=== PATIENT | female | born 1945 | race Hispanic/Latino ===

== ENCOUNTER 2018-06-13 05:44 | Day surgery (SDC) | payer OTHER ==
[~2018-06-13] VITALS: Ht 157.5 cm; Wt 69.1 kg
[~2018-06-13 05:44] MED LIST: INSU10VI3 SQ; METO50TA18 PO; OZEMPIC SQ; TORS20TA4 PO; TRAZ-185 PO
[2018-06-13] MEDS ORDERED: SODIUM CHLORIDE 0.9% 1000ML 1,000 ML IV ONE (05:58)
[2018-06-13 06:50] VITALS: BP 111/60
[2018-06-13] MEDS ORDERED: PROPOFOL 10 MG/ML 20ML VIAL IV ONE ×2 (08:06)
[2018-06-13] MEDS ORDERED: PHENYLEPHRINE HCL 10 MG/ML 1ML VIAL IV ONE (08:20)
[2018-06-13 08:29] VITALS: BP 96/36
[2018-06-13 08:36] VITALS: BP 103/50
[2018-06-13 08:41] VITALS: BP 98/50
[2018-06-13 08:48] VITALS: BP 112/66
== END 2018-06-13 08:59 | disposition home or self-care (01) ==
LOC: DAH 05:44
PROVIDERS: ATTEND Internal Medicine Gastroenterology
DX: K31.7 Polyp of stomach and duodenum (principal); K29.50 Unspecified chronic gastritis without bleeding; K21.0 Gastro-esophageal reflux disease with esophagitis; K44.9 Diaphragmatic hernia without obstruction or gangrene; K31.89 Other diseases of stomach and duodenum; E11.9 Type 2 diabetes mellitus without complications; Z85.3 Personal history of malignant neoplasm of breast; E78.5 Hyperlipidemia, unspecified; I11.0 Hypertensive heart disease with heart failure; I50.9 Heart failure, unspecified; F41.9 Anxiety disorder, unspecified; F32.9 Major depressive disorder, single episode, unspecified; M19.90 Unspecified osteoarthritis, unspecified site; Z90.49 Acquired absence of other specified parts of digestive tract; Z79.01 Long term (current) use of anticoagulants; Z79.899 Other long term (current) drug therapy; Z98.890 Other specified postprocedural states; Z95.0 Presence of cardiac pacemaker
CPT/HCPCS: 43239; 43251; 45330; 82948 ×2; 88305; 93005; A4606; J2370; J2704 ×2; J7030; 43244

== ENCOUNTER 2018-07-23 08:11 | Emergency (ER) | payer OTHER ==
[2018-07-23] MEDS ORDERED: ONDANSETRON HCL 4 MG/2 ML VIAL ONE (09:15)
[2018-07-23] MEDS ORDERED: SODIUM CHLORIDE 0.9% 1000ML 1,000 ML IV ONE (09:15)
[2018-07-23] MEDS ORDERED: MORPHINE SULFATE 4 MG/1ML SYG ONE (09:16)
[2018-07-23 09:18] LABS: APPEARANCE,URINE Clear (CLEAR); BASOPHILS % (AUTO) 0.8 % (0.0-5.0); BILIRUBIN,URINE Negative (NEGATIVE); COLOR,URINE Yellow (YELLOW); EOSINOPHILS % (AUTO) 2.3 % (0.0-8.0); GLUCOSE, URINE (UA) 250 mg/dL (NEGATIVE); HEMATOCRIT 35.5 % (36-48); KETONES,URINE Negative (NEGATIVE); LEUKOCYTE ESTERASE ,URINE Negative (NEGATIVE); MEAN CORPUSCULAR HEMOGLOBIN 29.9 pg (27.0-33.0); MEAN CORPUSCULAR HGB CONC 33.2 g/dL (32.0-36.0); MEAN CORPUSCULAR VOLUME 90.1 fL (79-99); MONOCYTES % (AUTO) 6.9 % (3.0-13.0); NITRATE,URINE Negative (NEGATIVE); NUCLEATED RED BLOOD CELLS 0.1 % (0.0-0.19); OCCULT BLOOD,URINE Trace (NEGATIVE); PLATELET COUNT (AUTO) 210 K/uL (130-400); PROTEIN,URINE POS 1+ (NEGATIVE); RED BLOOD CELL COUNT(AUTO) 3.94 MIL/uL (4.00-5.50); RED CELL DISTRIBUTION WIDTH 13.2 % (11.0-15.5); UROBILINOGEN,URINE 0.2 mg/dL (0.2-1.0); WHITE BLOOD COUNT (AUTO) 9.2 K/uL (4.8-10.8)
[2018-07-23 09:25] LABS: CREATININE 1.1 mg/dL (0.5-1.5); POTASSIUM 4.3 mmol/L (3.5-5.1)
[2018-07-23 09:31] LABS: ALBUMIN 3.3 g/dL (3.5-5.0); BILIRUBIN,TOTAL 0.8 mg/dL (0.2-1.0); INR 1.01 (0.85-1.15); PARTIAL THROMBOPLASTIN TIME 26.2 SEC (26.3-35.5); PROTHROMBIN TIME 10.6 SEC (9.6-11.6); TOTAL PROTEIN, SERUM 7.9 g/dL (6.0-8.3)
[2018-07-23] MEDS ORDERED: IOHEXOL-350 75 ML VIAL IV ONE (09:34)
[2018-07-23 09:58] LABS: BACTERIA,URINE Few /HPF (None Seen); MUCUS,URINE Rare LPF (None Seen); RBC,URINE 0-1 /HPF (0-1); SQUAMOUS EPITHELIAL CELL,UR Few /HPF (0-2); URIC ACID CRYSTALS,URINE Few /LPF (None Seen); WBC,URINE 0-1 /HPF (0-1)
== END 2018-07-23 10:57 | disposition home or self-care (01) ==
LOC: EDH 08:11
DX: R10.32 Left lower quadrant pain (principal); E11.9 Type 2 diabetes mellitus without complications; I11.0 Hypertensive heart disease with heart failure; I50.9 Heart failure, unspecified; I25.10 Atherosclerotic heart disease of native coronary artery without angina pectoris; Z90.49 Acquired absence of other specified parts of digestive tract; Z98.890 Other specified postprocedural states; Z85.3 Personal history of malignant neoplasm of breast
CPT/HCPCS: 36415; 74177; 80053; 81001; 83605; 83690; 84484; 85025; 85610; 85730; 96374; 96375; 99284; J2270; J2405; J7030; Q9967

== ENCOUNTER 2019-07-16 17:17 | Emergency (ER) | payer OTHER ==
[2019-07-16] MEDS ORDERED: ALTEPLASE 100 MG VIAL IVP ONE (17:18)
[2019-07-16 17:35] LABS: EOSINOPHILS % (AUTO) 2.6 % (0.0-8.0); HEMATOCRIT 36.4 % (36-48); MEAN CORPUSCULAR HEMOGLOBIN 29.6 pg (27.0-33.0); MEAN CORPUSCULAR HGB CONC 32.4 g/dL (32.0-36.0); MEAN CORPUSCULAR VOLUME 91.5 fL (79-99); MONOCYTES % (AUTO) 7.3 % (3.0-13.0); NEUTROPHILS % (AUTO) 66.6 % (40.0-77.0); PLATELET COUNT (AUTO) 232 K/uL (130-400); RED BLOOD CELL COUNT(AUTO) 3.98 MIL/uL (4.00-5.50); RED CELL DISTRIBUTION WIDTH 13.4 % (11.0-15.5); WHITE BLOOD COUNT (AUTO) 8.8 K/uL (4.8-10.8)
[2019-07-16 17:49] LABS: CREATININE 1.5 mg/dL (0.5-1.5); POTASSIUM 3.9 mmol/L (3.5-5.1)
[2019-07-16 17:54] LABS: ALBUMIN 3.5 g/dL (3.5-5.0); BILIRUBIN,TOTAL 0.6 mg/dL (0.2-1.0); TOTAL PROTEIN, SERUM 8.1 g/dL (6.0-8.3)
[2019-07-16 17:56] LABS: INR 1.05 (0.85-1.15); PARTIAL THROMBOPLASTIN TIME 23.6 SEC (26.3-35.5)
[2019-07-16] MEDS ORDERED: IOHEXOL-350 75 ML VIAL IV ONE (18:28)
[2019-07-16] MEDS ORDERED: DiphenhydrAMINE HCL 50 MG/ML VIAL ONE (18:35)
[2019-07-16] MEDS ORDERED: FUROSEMIDE 10 MG/ML 2ML VIAL ONE (18:35)
[2019-07-16] MEDS ORDERED: FUROSEMIDE 10 MG/ML 4ML VIAL ONE (18:36)
[2019-07-16] MEDS ORDERED: IPRATROPIUM/ALBUTEROL SULFATE 3 ML SOLUTION IH ONE (18:36)
[2019-07-16] MEDS ORDERED: NITROGLYCERIN 1GM/1 INCH PACKET TD ONE (19:01)
[2019-07-16 19:37] LABS: APPEARANCE,URINE Clear (CLEAR); BILIRUBIN,URINE Negative (NEGATIVE); COLOR,URINE Yellow (YELLOW); GLUCOSE, URINE (UA) Negative (NEGATIVE); KETONES,URINE Negative (NEGATIVE); LEUKOCYTE ESTERASE ,URINE Trace (NEGATIVE); NITRATE,URINE Positive (NEGATIVE); OCCULT BLOOD,URINE Moderate (NEGATIVE); PH,URINE 5.5 (5.0-8.0); PROTEIN,URINE POS 2+ mg/dL (NEGATIVE); UROBILINOGEN,URINE 0.2 mg/dL (0.2-1.0)
[2019-07-16 19:45] LABS: AMPHET/METH SCREEN,URINE NEGATIVE (NEGATIVE); BARBITURATE SCREEN, URINE NEGATIVE (NEGATIVE); BENZODIAZEPINES SCREEN,URINE NEGATIVE (NEGATIVE); CANNABINOID SCREEN,URINE NEGATIVE (NEGATIVE); COCAINE SCREEN,URINE NEGATIVE (NEGATIVE); OPIATE SCREEN,URINE NEGATIVE (NEGATIVE); PHENCYCLIDINE SCREEN,URINE NEGATIVE (NEGATIVE)
[2019-07-16 19:46] LABS: BACTERIA,URINE Moderate /HPF (None Seen); SQUAMOUS EPITHELIAL CELL,UR Few /HPF (0-2)
== END 2019-07-16 22:45 | disposition short-term general hospital (02) ==
LOC: EDH 17:17
DX: I63.9 Cerebral infarction, unspecified (principal); J81.0 Acute pulmonary edema; I16.1 Hypertensive emergency; I11.0 Hypertensive heart disease with heart failure; I50.9 Heart failure, unspecified; E11.9 Type 2 diabetes mellitus without complications; Z85.3 Personal history of malignant neoplasm of breast; Z79.899 Other long term (current) drug therapy
CPT/HCPCS: 36415; 37195; 70450; 71045 ×2; 80053; 80305; 81001; 82550; 82948; 83721; 83880; 84484; 85025; 85610; 85730; 93005; 94640; 94660; 96374; 96375; 99291; 99292; J1200; J1940 ×2; J2997; 70496; 70498; Q9967

== ENCOUNTER → 2019-10-26 | Outpatient (CLI) | payer OTHER | END | disposition home or self-care (01) | LOC: RAH 10:05 | PROVIDERS: ATTEND Internal Medicine Cardiovascular Disease | DX: I08.3 Combined rheumatic disorders of mitral, aortic and tricuspid valves (principal); I50.9 Heart failure, unspecified; I27.20 Pulmonary hypertension, unspecified | CPT/HCPCS: 93306; 93356 ==

== ENCOUNTER 2019-12-13 05:34 | Observation (INO) | payer OTHER ==
--- NOTE | 2019-12-12 11:28 | NUR ---
MEDS DR. Martin DORANTES NOTIFIED THAT PATIENT TOOK XARELTO TODAY IN AM. PT SCHEDULED FOR LHC IN AM , HE STATED HE WILL REVIEW CHART AND DECIDE WHETER PROCEDURE CAN STILL BE DONE, PENDING CALL BACK
[2019-12-13] VITALS (13 sets, daily range): BP systolic 120–139; BP diastolic 54–84
[~2019-12-13] VITALS: Ht 154.9 cm; Wt 68.0 kg
[~2019-12-13 05:34] MED LIST changes: +AMIO200T6 PO; +ATOR20TA65 PO; +CARV6.25 PO; +INSU100I35 SQ; -INSU10VI3 SQ; -METO50TA18 PO; -OZEMPIC SQ; +RIVA15TA PO; -TRAZ-185 PO; +ozempic SQ
[2019-12-13 06:38] LABS: BASOPHILS % (AUTO) 0.9 % (0.0-5.0); HEMATOCRIT 35.2 % (36-48); LYMPHOCYTES % (AUTO) 19.4 % (21.0-51.0); MEAN CORPUSCULAR HEMOGLOBIN 30.4 pg (27.0-33.0); MEAN CORPUSCULAR VOLUME 92.1 fL (79-99); MONOCYTES % (AUTO) 7.7 % (3.0-13.0); NEUTROPHILS % (AUTO) 67.6 % (40.0-77.0); PLATELET COUNT (AUTO) 205 K/uL (130-400); RED BLOOD CELL COUNT(AUTO) 3.82 MIL/uL (4.00-5.50); RED CELL DISTRIBUTION WIDTH 13.5 % (11.0-15.5)
[2019-12-13 06:44] LABS: APPEARANCE,URINE Clear (CLEAR); BILIRUBIN,URINE Negative (NEGATIVE); COLOR,URINE Yellow (YELLOW); GLUCOSE, URINE (UA) Negative (NEGATIVE); KETONES,URINE Negative (NEGATIVE); LEUKOCYTE ESTERASE ,URINE Trace (NEGATIVE); NITRATE,URINE Negative (NEGATIVE); OCCULT BLOOD,URINE Trace (NEGATIVE); PROTEIN,URINE Trace mg/dL (NEGATIVE); UROBILINOGEN,URINE 0.2 mg/dL (0.2-1.0)
[2019-12-13 06:46] LABS: CREATININE 1.8 mg/dL (0.5-1.5); POTASSIUM 3.5 mmol/L (3.5-5.1)
[2019-12-13] MEDS ORDERED: SODIUM CHLORIDE 0.9% 1000ML 1,000 ML IV ONE (06:50)
[2019-12-13 06:57] LABS: INR 1.27 (0.85-1.15); PARTIAL THROMBOPLASTIN TIME 30.9 SEC (26.3-35.5); PROTHROMBIN TIME 13.6 SEC (9.6-11.6)
[2019-12-13 06:59] LABS: BACTERIA,URINE Moderate /HPF (None Seen); HYALINE CASTS, URINE 0-1 /LPF (0-1 /LPF); RBC,URINE 0-1 /HPF (0-1)
[2019-12-13] MEDS: SODIUM CHLORIDE 0.9% 1000ML 1,000 ML IV SCH ×4 (07:30→22:30)
[2019-12-13] MEDS ORDERED: MIDAZOLAM HCL 1 MG/ML 2ML VIAL ONE (07:31)
[2019-12-13] MEDS ORDERED: BIVALIRUDIN 250 MG/VIAL IV ONE (07:31)
[2019-12-13] MEDS ORDERED: NITROGLYCERIN 2 MG/VIAL VIAL IV ONE (07:31)
[2019-12-13] MEDS ORDERED: IOHEXOL 350 MG/ML 100ML INFUS..BTL IV ONE (07:31)
[2019-12-13] MEDS ORDERED: LIDOCAINE HCL 2% 20ML ONE (07:31)
[2019-12-13] MEDS ORDERED: IOHEXOL-350 50ML VIAL IV ONE (08:18)
[2019-12-13] MEDS ORDERED: SODIUM CHLORIDE 0.9% 1000ML 1,000 ML IV SCH (08:58)
[2019-12-13] MEDS ORDERED: GLUCAGON 1MG KIT 1 MG ML IM PRN (09:00)
[2019-12-13] MEDS ORDERED: DEXTROSE 50%-WATER 50 ML DISP.SYRIN IV PRN (09:00)
[2019-12-13] MEDS: INSULIN HUMULIN 70/30 100 UNIT/ML 3ML SQ SCH ×2 (10:22→16:32)
[2019-12-13] MEDS: INSULIN HUMULIN R 100 UNIT/ML 3ML SQ SCH ×3 (10:36→21:00)
[2019-12-13] MEDS ORDERED: VANCOMYCIN 1GM+NS 250ML 250 ML IV PRN (11:30)
[2019-12-13] MEDS ORDERED: CARVEDILOL 3.125 MG TABLET PO SCH (21:00)
[2019-12-13] MEDS: TORSEMIDE 20 MG TAB PO SCH (21:23)
[2019-12-13] MEDS: ATORVASTATIN CALCIUM 20 MG TABLET PO SCH (21:23)
[2019-12-13] MEDS: AMIODARONE HCL 200 MG TABLET PO SCH (21:24)
[2019-12-14] VITALS (12 sets, daily range): BP systolic 105–132; BP diastolic 57–80
[2019-12-14] MEDS: SODIUM CHLORIDE 0.9% 1000ML 1,000 ML IV SCH ×4 (03:30→17:50)
[2019-12-14 04:11] LABS: CREATININE 1.5 mg/dL (0.5-1.5); POTASSIUM 3.3 mmol/L (3.5-5.1)
[2019-12-14] MEDS: INSULIN HUMULIN R 100 UNIT/ML 3ML SQ SCH ×4 (05:28→21:00)
[2019-12-14] MEDS ORDERED: POTASSIUM CHLORIDE 10% ELIXIR 20 MEQ/15 ML UDCUP PO PRN (06:00)
[2019-12-14] MEDS ORDERED: POTASSIUM CHLORIDE 20MEQ/100ML 100 ML IV PRN (06:00)
[2019-12-14] MEDS ORDERED: LIDOCAINE HCL-MPF 1% 2ML VIAL IJ PRN (06:00)
[2019-12-14] MEDS ORDERED: POTASSIUM CHLORIDE 20MEQ/100ML 100 ML IV ONE (06:09)
[2019-12-14] MEDS ORDERED: LIDOCAINE HCL-MPF 1% 2ML VIAL ONE (06:11)
[2019-12-14] MEDS ORDERED: BUPIVACAINE/PF 0.25% 30ML VIAL IJ ONE (07:20)
[2019-12-14] MEDS ORDERED: LIDOCAINE HCL 1% MDV 50ML VIAL ONE (07:20)
[2019-12-14] MEDS ORDERED: MIDAZOLAM HCL 1 MG/ML 2ML VIAL ONE ×3 (07:20→08:41)
[2019-12-14] MEDS ORDERED: MEPERIDINE-PF 25 MG/ML SYG ONE ×3 (07:20→08:41)
[2019-12-14] MEDS ORDERED: IODIXANOL 320 MG/ML 100 ML VIAL ONE (07:20)
[2019-12-14] MEDS ORDERED: VANCOMYCIN 1GM+NS 250ML 500 ML IV ONE (07:21)
[2019-12-14] MEDS: INSULIN HUMULIN 70/30 100 UNIT/ML 3ML SQ SCH ×2 (08:00→16:34)
[2019-12-14] MEDS ORDERED: ACETAMINOPHEN-CODEINE 300/30MG TAB PO PRN (10:30)
--- NOTE | 2019-12-14 10:59 | NUR ---
CM NOTE/IA UNSUCCESSFUL MEET WITH PATIENT IN ROOM FOR IA, PATIENT AROUSABLE BUT EASY DROWSY AND FALLS ASLEEP. S/P AICD, WILL FOLLOW UP AT A LATER TIME. Addendum: 12/14/19 at 1100 by BERTHA ALVAREZ RN CM Amended: Links added.
[2019-12-14] MEDS: CARVEDILOL 6.25 MG TABLET PO SCH ×2 (11:32→20:42)
[2019-12-14] MEDS: LOSARTAN 50 MG TABLET PO SCH (11:33)
[2019-12-14] MEDS: TORSEMIDE 20 MG TAB PO SCH (20:43)
[2019-12-14] MEDS: AMIODARONE HCL 200 MG TABLET PO SCH (20:43)
[2019-12-14] MEDS: ATORVASTATIN CALCIUM 20 MG TABLET PO SCH (20:43)
[2019-12-15 04:00] VITALS: BP 124/71
[2019-12-15 04:52] LABS: CREATININE 1.7 mg/dL (0.5-1.5); POTASSIUM 3.5 mmol/L (3.5-5.1)
--- NOTE | 2019-12-15 04:52 | NUR ---
PATIENT A/OX3. DENIES CHEST PAIN OR SOB. DOES C/O SORENESS TO INCISION SITE. SWELLING TO PM SITE NOTED. ICE PACK APPLIED. REDIAL PULSES INTACT. DENIES TINGLING OR NUMBNESS TO LEFT HAND. CAP REFILL < 3. LEFT ARM IN SLING. WILL CONTINUE TO MONITOR.
[2019-12-15] MEDS: POTASSIUM CHLORIDE 20 MEQ ERTAB PO PRN ×2 (06:11→11:17)
[2019-12-15] MEDS: INSULIN HUMULIN R 100 UNIT/ML 3ML SQ SCH ×3 (06:23→16:30)
[2019-12-15 07:30] VITALS: BP 125/74
[2019-12-15] MEDS: SODIUM CHLORIDE 0.9% 1000ML 1,000 ML IV SCH ×2 (07:59→14:30)
[2019-12-15] MEDS: LOSARTAN 50 MG TABLET PO SCH (07:59)
[2019-12-15] MEDS: CARVEDILOL 6.25 MG TABLET PO SCH (08:00)
[2019-12-15] MEDS: INSULIN HUMULIN 70/30 100 UNIT/ML 3ML SQ SCH ×2 (08:02→16:38)
[2019-12-15] MEDS ORDERED: RIVAROXABAN 15 MG TABLET PO SCH (09:00)
[2019-12-15 11:30] VITALS: BP 122/67
[2019-12-15] MEDS ORDERED: RIVAROXABAN 2.5 MG TABLET PO SCH ×2 (12:30→19:00)
[2019-12-15 15:30] VITALS: BP 117/66
[2019-12-20] MEDS ORDERED: OZEMPIC 2.5 MG SQ SCH (09:00)
== END 2019-12-15 19:00 | disposition home or self-care (01) ==
LOC: DAH 05:34 → DAHIP 05:35 → 4BH 09:42 → 4CH 18:03 → 4AH 12-14 11:52 → 4CH 12-14 11:55
PROVIDERS: ADMIT Internal Medicine Cardiovascular Disease; ATTEND Internal Medicine Cardiovascular Disease
DX: I25.5 Ischemic cardiomyopathy (principal); I48.0 Paroxysmal atrial fibrillation; I44.2 Atrioventricular block, complete; I47.1 Supraventricular tachycardia; I50.42 Chronic combined systolic (congestive) and diastolic (congestive) heart failure; N18.3 Chronic kidney disease, stage 3 (moderate); I42.8 Other cardiomyopathies; Z86.73 Personal history of transient ischemic attack (TIA), and cerebral infarction without residual deficits; Z95.0 Presence of cardiac pacemaker; Z79.01 Long term (current) use of anticoagulants; Z91.14 Patient's other noncompliance with medication regimen
CPT/HCPCS: 33225; 33233; 33249; 36415 ×3; 71045 ×2; 80048 ×3; 81001; 82948 ×11; 85025; 85610; 85730; 87088; 93005; 93458; 96372 ×3; A4215; A4216; A4221; A4222; A4223 ×3; A4606; A4663; C1760; C1769; C1882; C1894 ×2; C1895; C1900; G0378 ×20; J1644; J1815 ×8; J2175 ×3; J2250 ×4; J3370; J3480; J3490 ×5; J7030 ×2; Q9965; Q9967 ×3; 99156; 99157; J0583

== ENCOUNTER → 2021-07-06 | Outpatient (CLI) | payer OTHER ==
[~2021-07-06] MED LIST changes: -AMIO200T6 PO; +AMIO200T68 PO; -CARV6.25 PO
== END | disposition home or self-care (01) ==
LOC: RAH 13:53
PROVIDERS: ATTEND Family Medicine
DX: J98.4 Other disorders of lung (principal)
CPT/HCPCS: 71250

== ENCOUNTER 2022-05-19 13:08 | Emergency (ER) | payer OTHER ==
[~2022-05-19] VITALS: Ht 154.9 cm; Wt 74.8 kg
[2022-05-19] MEDS ORDERED: ACETAMINOPHEN 500 MG TABLET PO STA (13:24)
[2022-05-19] MEDS ORDERED: ACET-66 PO (14:12)
[2022-05-19 15:17] VITALS: BP 156/80
== END 2022-05-19 15:18 | disposition home or self-care (01) ==
LOC: EDH 13:08
DX: S42.202A Unspecified fracture of upper end of left humerus, initial encounter for closed fracture (principal); M25.561 Pain in right knee; I11.0 Hypertensive heart disease with heart failure; I50.9 Heart failure, unspecified; E11.9 Type 2 diabetes mellitus without complications; Z79.4 Long term (current) use of insulin; Z90.49 Acquired absence of other specified parts of digestive tract; W01.0XXA Fall on same level from slipping, tripping and stumbling without subsequent striking against object, initial encounter; Y93.89 Activity, other specified; Y92.89 Other specified places as the place of occurrence of the external cause; Y99.8 Other external cause status
CPT/HCPCS: 71045; 73030; 73562

== ENCOUNTER → 2022-08-17 | Outpatient (CLI) | payer OTHER ==
[~2022-08-17] MED LIST changes: +ACET-66 PO
[2022-08-17 09:33] LABS: CREATININE 2.5 mg/dL (0.5-1.5); POTASSIUM 4.9 mmol/L (3.5-5.1)
== END | disposition home or self-care (01) ==
LOC: RAH 08:36
PROVIDERS: ATTEND Internal Medicine Cardiovascular Disease
DX: R22.32 Localized swelling, mass and lump, left upper limb (principal); I82.90 Acute embolism and thrombosis of unspecified vein
CPT/HCPCS: 36415; 80048; 83880; 93971

== ENCOUNTER 2023-01-31 08:26 | Day surgery (SDC) | payer OTHER ==
[2023-01-27 09:50] LABS: HEMATOCRIT 39.6 % (36-48); MEAN CORPUSCULAR HEMOGLOBIN 31.1 pg (27.0-33.0); MEAN CORPUSCULAR HGB CONC 31.1 g/dL (32.0-36.0); MEAN CORPUSCULAR VOLUME 100.3 fL (79-99); RED BLOOD CELL COUNT(AUTO) 3.95 MIL/uL (4.00-5.50); RED CELL DISTRIBUTION WIDTH 14.6 % (11.0-15.5); WHITE BLOOD COUNT (AUTO) 6.6 K/uL (4.8-10.8)
[2023-01-27 09:58] VITALS: BP 221/90; PULSE 85; RESP 16
[2023-01-27 10:02] LABS: INR 1.01 (0.85-1.15)
[2023-01-27 10:03] LABS: PARTIAL THROMBOPLASTIN TIME 27.4 SEC (26.3-35.5)
[2023-01-27 10:05] LABS: CREATININE 5.1 mg/dL (0.5-1.5); POTASSIUM 4.6 mmol/L (3.5-5.1)
[~2023-01-31] VITALS: Ht 152.4 cm; Wt 70.3 kg
[2023-01-31] VITALS (19 sets, daily range): BP systolic 116–171; BP diastolic 42–73; PULSE 60–71; RESP 11–16
[~2023-01-31 08:26] MED LIST changes: -ACET-66 PO; +APIX5TAB PO; -ATOR20TA65 PO; +CARV6.25 PO; +CLON0.1T PO; +FLUC150T48 PO; +HYDR-4154 PO; +ISOS30TA92 PO; +NITR100C PO; -RIVA15TA PO; -TORS20TA4 PO; -ozempic SQ
[2023-01-31] MEDS ORDERED: CEFAZOLIN SODIUM 2 GM VIAL ONE (08:58)
[2023-01-31] MEDS ORDERED: 0.9% NACL 500ML IV.SOLN 500 ML IV ONE (08:58)
[2023-01-31 09:25] LABS: CREATININE 4.8 mg/dL (0.5-1.5); POTASSIUM 4.4 mmol/L (3.5-5.1)
[2023-01-31] MEDS ORDERED: ONDANSETRON 4MG INJ ONE ×2 (13:31→16:24)
[2023-01-31] MEDS ORDERED: PROPOFOL 10 MG/ML 20ML VIAL IV ONE (13:31)
[2023-01-31] MEDS ORDERED: ROCURONIUM 10MG/1ML SYR 10 MG/ML ML ONE (13:31)
[2023-01-31] MEDS ORDERED: FENTANYL CITRATE PF 50 MCG/1 ML 2ML VIAL ONE (13:32)
[2023-01-31] MEDS ORDERED: LIDOCAINE HCL 1% 20 ML VIAL ONE (13:53)
[2023-01-31] MEDS ORDERED: CEFAZOLIN SODIUM 1 GM VIAL ONE (13:53)
[2023-01-31] MEDS ORDERED: BUPIVACAINE/PF 0.5% 10ML VIAL ONE (13:54)
[2023-01-31] MEDS ORDERED: PHENYLEPHRINE HCL 10 MG/ML 1ML VIAL IV ONE (14:10)
[2023-01-31] MEDS ORDERED: NEOSTIGMINE 5MG/5ML SYR IV ONE (14:50)
[2023-01-31] MEDS ORDERED: GLYCOPYRROLATE 1 MG/5 ML SYRINGE ONE (14:50)
== END 2023-01-31 17:40 | disposition home or self-care (01) ==
LOC: DAH 08:26
PROVIDERS: ATTEND Thoracic Surgery (Cardiothoracic Vascular Surgery)
DX: E11.22 Type 2 diabetes mellitus with diabetic chronic kidney disease (principal); Z20.822 Contact with and (suspected) exposure to COVID-19; I13.11 Hypertensive heart and chronic kidney disease without heart failure, with stage 5 chronic kidney disease, or end stage renal disease; N18.6 End stage renal disease; G47.33 Obstructive sleep apnea (adult) (pediatric); F32.A Depression, unspecified; Z86.73 Personal history of transient ischemic attack (TIA), and cerebral infarction without residual deficits; Z99.2 Dependence on renal dialysis; Z79.01 Long term (current) use of anticoagulants; Z79.899 Other long term (current) drug therapy
CPT/HCPCS: 80048 ×2; 85027; 85610; 85730; 86850 ×2; 86900 ×2; 86901 ×2; 87426; 36415 ×2; 71045; 93005; 36830; 82948 ×3; A6260; A4663; A6207; J7030; A4215 ×2; A4452; J7040; J3010; J0690 ×2; J3490 ×2; J2710; J2704; J2405 ×2; J1644; A6446; C9250; A4649 ×3; C1713 ×2; C1768; A4223; A4222; A4221; J2371; G0168

== ENCOUNTER 2023-08-23 20:17 | Emergency (ER) | payer OTHER ==
[2023-08-23 20:58] LABS: BASOPHILS # (AUTO) 0.07 K/uL (0.00-0.20); BASOPHILS % (AUTO) 0.7 % (0.0-5.0); EOSINOPHILS # (AUTO) 0.25 K/uL (0.00-0.70); EOSINOPHILS % (AUTO) 2.6 % (0.0-8.0); HEMATOCRIT 30.1 % (36-48); IMMATURE GRANULOCYTE ABSOLUTE 0.06 K/uL (0-1); LYMPHOCYTES # (AUTO) 1.3 K/uL (1.0-4.8); LYMPHOCYTES % (AUTO) 13.9 % (21.0-51.0); MEAN CORPUSCULAR HEMOGLOBIN 32.4 pg (27.0-33.0); MEAN CORPUSCULAR HGB CONC 33.6 g/dL (32.0-36.0); MEAN CORPUSCULAR VOLUME 96.5 fL (79-99); MONOCYTES # (AUTO) 0.8 K/uL (0.1-1.0); MONOCYTES % (AUTO) 8.1 % (3.0-13.0); NEUTROPHILS # (AUTO) 7.1 K/uL (1.8-7.7); NEUTROPHILS % (AUTO) 74.1 % (40.0-77.0); PLATELET COUNT (AUTO) 172 K/uL (130-400); RED BLOOD CELL COUNT(AUTO) 3.12 MIL/uL (4.00-5.50); WHITE BLOOD COUNT (AUTO) 9.6 K/uL (4.8-10.8)
[2023-08-23 21:09] LABS: INR 0.94 (0.85-1.15)
[2023-08-23 21:10] LABS: PARTIAL THROMBOPLASTIN TIME 25.2 SEC (26.3-35.5)
[2023-08-23 21:18] LABS: ALBUMIN 3.3 g/dL (3.5-5.0); BILIRUBIN,TOTAL 0.4 mg/dL (0.2-1.0); CREATININE 4.5 mg/dL (0.5-1.5); POTASSIUM 3.5 mmol/L (3.5-5.1); TOTAL PROTEIN, SERUM 7.6 g/dL (6.0-8.3)
[2023-08-23 23:09] VITALS: BP 173/65; PULSE 74; RESP 16; O2SAT 95
== END 2023-08-23 23:32 | disposition home or self-care (01) ==
LOC: EDH 20:17
DX: N95.0 Postmenopausal bleeding (principal); I25.10 Atherosclerotic heart disease of native coronary artery without angina pectoris; E11.9 Type 2 diabetes mellitus without complications; E78.00 Pure hypercholesterolemia, unspecified; I11.0 Hypertensive heart disease with heart failure; I50.9 Heart failure, unspecified; Z79.01 Long term (current) use of anticoagulants; Z79.4 Long term (current) use of insulin; Z79.899 Other long term (current) drug therapy; Z86.73 Personal history of transient ischemic attack (TIA), and cerebral infarction without residual deficits; Z99.2 Dependence on renal dialysis
CPT/HCPCS: 36415; 70450; 72125; 76856; 80053; 84484; 85025; 85610; 85730

== ENCOUNTER 2023-08-25 20:47 | Emergency (ER) | payer OTHER ==
[~2023-08-25] VITALS: Ht 152.4 cm; Wt 79.4 kg
[~2023-08-25 20:47] MED LIST changes: -HYDR-4154 PO; +HYDR50TA37 PO
[2023-08-25] MEDS ORDERED: ONDANSETRON 4MG INJ ONE (20:54)
[2023-08-25 21:25] LABS: MEAN CORPUSCULAR HEMOGLOBIN 31.9 pg (27.0-33.0); MEAN CORPUSCULAR HGB CONC 31.9 g/dL (32.0-36.0); PLATELET COUNT (AUTO) 137 K/uL (130-400); RED CELL DISTRIBUTION WIDTH 14.1 % (11.0-15.5); WHITE BLOOD COUNT (AUTO) 10.7 K/uL (4.8-10.8)
[2023-08-25 21:28] LABS: BASOPHILS # (AUTO) 0.04 K/uL (0.00-0.20); BASOPHILS % (AUTO) 0.4 % (0.0-5.0); EOSINOPHILS # (AUTO) 0.26 K/uL (0.00-0.70); EOSINOPHILS % (AUTO) 2.5 % (0.0-8.0); IMMATURE GRANULOCYTE ABSOLUTE 0.06 K/uL (0-1); LYMPHOCYTES # (AUTO) 0.6 K/uL (1.0-4.8); LYMPHOCYTES % (AUTO) 5.5 % (21.0-51.0); MONOCYTES # (AUTO) 0.8 K/uL (0.1-1.0); MONOCYTES % (AUTO) 7.8 % (3.0-13.0); NEUTROPHILS # (AUTO) 8.7 K/uL (1.8-7.7); NEUTROPHILS % (AUTO) 83.2 % (40.0-77.0)
[2023-08-25] MEDS ORDERED: ACETAMINOPHEN 325 MG TAB PO STA (21:28)
[2023-08-25] MEDS ORDERED: ONDANSETRON 4MG INJ IVP STA (21:28)
[2023-08-25 21:41] LABS: CREATININE 4.4 mg/dL (0.5-1.5); POTASSIUM 3.8 mmol/L (3.5-5.1)
[2023-08-25 21:45] LABS: ALBUMIN 3.3 g/dL (3.5-5.0); BILIRUBIN,TOTAL 0.7 mg/dL (0.2-1.0); TOTAL PROTEIN, SERUM 7.7 g/dL (6.0-8.3)
[2023-08-25 21:57] LABS: RAPID GROUP A STREP negative (NEGATIVE)
[2023-08-25 21:57] LABS: B-TYPE NATRIURETIC PEPTIDE 2300 pg/mL (0-100)
[2023-08-25 22:05] LABS: SARS-CoV-2, RNA, NAAT NEGATIVE SARS CoV-2 (NEGATIVE)
[2023-08-25 22:07] LABS: INFLUENZA TYPE A Negative For Type A (NEGATIVE); INFLUENZA TYPE B Negative For Type B (NEGATIVE)
[2023-08-25] MEDS ORDERED: ONDA4TAB10 PO (22:07)
[2023-08-25 22:55] VITALS: TEMP 98
[2023-08-26 07:25] VITALS: BP 153/63; PULSE 80; RESP 18; O2SAT 98
== END 2023-08-26 08:11 | disposition home or self-care (01) ==
LOC: EDH 20:47
DX: R11.2 Nausea with vomiting, unspecified (principal); I25.10 Atherosclerotic heart disease of native coronary artery without angina pectoris; E11.9 Type 2 diabetes mellitus without complications; E78.00 Pure hypercholesterolemia, unspecified; I11.0 Hypertensive heart disease with heart failure; I50.9 Heart failure, unspecified; Z79.01 Long term (current) use of anticoagulants; Z79.4 Long term (current) use of insulin; Z79.899 Other long term (current) drug therapy; Z86.73 Personal history of transient ischemic attack (TIA), and cerebral infarction without residual deficits; Z99.2 Dependence on renal dialysis; Z20.822 Contact with and (suspected) exposure to COVID-19
CPT/HCPCS: 99285; 74176; 71045; 87635; 84484; 80053; 83880; 85025; 86850; 86900; 86901; 87040 ×2; 87880; 87804 ×2; 83605; 36415; 93005; J2405

== ENCOUNTER → 2023-09-16 | Outpatient (CLI) | payer OTHER ==
[~2023-09-16] MED LIST changes: +ONDA4TAB10 PO
== END | disposition home or self-care (01) ==
LOC: RAH 07:47
PROVIDERS: ATTEND Family Medicine
DX: R11.2 Nausea with vomiting, unspecified (principal)
CPT/HCPCS: 78264; A9541

== ENCOUNTER 2023-10-12 14:27 | Observation (INO) | payer OTHER ==
[~2023-10-12] VITALS: Ht 152.4 cm; Wt 72.6 kg
[2023-10-12 16:07] LABS: BASOPHILS # (AUTO) 0.07 K/uL (0.00-0.20); BASOPHILS % (AUTO) 1.1 % (0.0-5.0); EOSINOPHILS # (AUTO) 0.05 K/uL (0.00-0.70); EOSINOPHILS % (AUTO) 0.8 % (0.0-8.0); HEMATOCRIT 31.6 % (36-48); IMMATURE GRANULOCYTE ABSOLUTE 0.03 K/uL (0-1); LYMPHOCYTES # (AUTO) 0.8 K/uL (1.0-4.8); LYMPHOCYTES % (AUTO) 12.9 % (21.0-51.0); MEAN CORPUSCULAR HEMOGLOBIN 31.4 pg (27.0-33.0); MEAN CORPUSCULAR HGB CONC 32.3 g/dL (32.0-36.0); MEAN CORPUSCULAR VOLUME 97.2 fL (79-99); MONOCYTES % (AUTO) 15.8 % (3.0-13.0); NEUTROPHILS # (AUTO) 4.3 K/uL (1.8-7.7); NEUTROPHILS % (AUTO) 68.9 % (40.0-77.0); PLATELET COUNT (AUTO) 154 K/uL (130-400); RED BLOOD CELL COUNT(AUTO) 3.25 MIL/uL (4.00-5.50); RED CELL DISTRIBUTION WIDTH 14.7 % (11.0-15.5); WHITE BLOOD COUNT (AUTO) 6.2 K/uL (4.8-10.8)
[2023-10-12 16:20] LABS: CREATININE 7.2 mg/dL (0.5-1.5); POTASSIUM 4.5 mmol/L (3.5-5.1)
[2023-10-12 16:25] LABS: BILIRUBIN,TOTAL 0.7 mg/dL (0.2-1.0)
[2023-10-12 17:37] LABS: INFLUENZA TYPE A Negative For Type A (NEGATIVE); INFLUENZA TYPE B Negative For Type B (NEGATIVE)
[2023-10-12 17:38] LABS: SARS-CoV-2, RNA, NAAT NEGATIVE SARS CoV-2 (NEGATIVE)
[2023-10-12] MEDS ORDERED: ACETAMINOPHEN 325 MG TAB PO PRN ×2 (20:00)
[2023-10-12] MEDS ORDERED: GLUCAGON 1MG KIT 1 MG ML IM PRN (20:00)
[2023-10-12] MEDS ORDERED: ONDANSETRON 4MG INJ IV PRN (20:00)
[2023-10-12] MEDS ORDERED: DEXTROSE 50%-WATER 50 ML DISP.SYRIN IV PRN (20:00)
[2023-10-12] MEDS ORDERED: HYDRALAZINE 20MG/ML VIAL IV PRN (20:30)
[2023-10-12] MEDS: INSULIN HUMULIN R 100 UNIT/ML 3ML SQ SCH (21:00)
[2023-10-12] MEDS: FAMOTIDINE 20MG TAB PO SCH (22:13)
[2023-10-13] VITALS (20 sets, daily range): BP systolic 147–175; BP diastolic 56–80; PULSE 73–86; RESP 14–18; TEMP 97.8–98.5; O2SAT 92–96
[2023-10-13 05:40] LABS: BASOPHILS # (AUTO) 0.06 K/uL (0.00-0.20); EOSINOPHILS # (AUTO) 0.15 K/uL (0.00-0.70); EOSINOPHILS % (AUTO) 2.5 % (0.0-8.0); HEMATOCRIT 31.1 % (36-48); IMMATURE GRANULOCYTE ABSOLUTE 0.03 K/uL (0-1); LYMPHOCYTES # (AUTO) 1.4 K/uL (1.0-4.8); LYMPHOCYTES % (AUTO) 23.5 % (21.0-51.0); MEAN CORPUSCULAR HEMOGLOBIN 31.7 pg (27.0-33.0); MEAN CORPUSCULAR HGB CONC 30.9 g/dL (32.0-36.0); MEAN CORPUSCULAR VOLUME 102.6 fL (79-99); MONOCYTES # (AUTO) 1.1 K/uL (0.1-1.0); MONOCYTES % (AUTO) 18.2 % (3.0-13.0); NEUTROPHILS # (AUTO) 3.3 K/uL (1.8-7.7); NEUTROPHILS % (AUTO) 54.3 % (40.0-77.0); PLATELET COUNT (AUTO) 146 K/uL (130-400); RED BLOOD CELL COUNT(AUTO) 3.03 MIL/uL (4.00-5.50); RED CELL DISTRIBUTION WIDTH 14.6 % (11.0-15.5)
[2023-10-13 06:09] LABS: ALBUMIN 2.9 g/dL (3.5-5.0); B-TYPE NATRIURETIC PEPTIDE 1020 pg/mL (0-100); BILIRUBIN,TOTAL 0.7 mg/dL (0.2-1.0); POTASSIUM 4.9 mmol/L (3.5-5.1); TOTAL PROTEIN, SERUM 6.8 g/dL (6.0-8.3)
[2023-10-13 06:22] LABS: CREATININE 8.2 mg/dL (0.5-1.5)
[2023-10-13] MEDS: APIXABAN 5 MG TABLET PO SCH (08:32)
[2023-10-13] MEDS ORDERED: ONDANSETRON ODT 4MG TAB PO PRN (13:00)
[2023-10-13] MEDS: CARVEDILOL 6.25 MG TABLET PO SCH (22:04)
[2023-10-13] MEDS: HYDRALAZINE 25MG TABLET PO SCH (22:04)
[2023-10-14 00:18] VITALS: BP 150/64; PULSE 84; RESP 18
[2023-10-14 04:06] VITALS: BP 133/59; PULSE 73; RESP 18
[2023-10-14 05:53] LABS: BASOPHILS # (AUTO) 0.06 K/uL (0.00-0.20); EOSINOPHILS # (AUTO) 0.21 K/uL (0.00-0.70); EOSINOPHILS % (AUTO) 3.5 % (0.0-8.0); HEMATOCRIT 30.1 % (36-48); IMMATURE GRANULOCYTE ABSOLUTE 0.02 K/uL (0-1); LYMPHOCYTES # (AUTO) 1.2 K/uL (1.0-4.8); LYMPHOCYTES % (AUTO) 19.8 % (21.0-51.0); MEAN CORPUSCULAR HEMOGLOBIN 31.2 pg (27.0-33.0); MEAN CORPUSCULAR HGB CONC 32.2 g/dL (32.0-36.0); MEAN CORPUSCULAR VOLUME 96.8 fL (79-99); MONOCYTES # (AUTO) 0.9 K/uL (0.1-1.0); NEUTROPHILS # (AUTO) 3.7 K/uL (1.8-7.7); NEUTROPHILS % (AUTO) 60.4 % (40.0-77.0); PLATELET COUNT (AUTO) 160 K/uL (130-400); RED BLOOD CELL COUNT(AUTO) 3.11 MIL/uL (4.00-5.50); RED CELL DISTRIBUTION WIDTH 14.2 % (11.0-15.5); WHITE BLOOD COUNT (AUTO) 6.1 K/uL (4.8-10.8)
[2023-10-14 06:09] LABS: CREATININE 5.9 mg/dL (0.5-1.5); POTASSIUM 3.8 mmol/L (3.5-5.1)
[2023-10-14 08:00] VITALS: BP 153/81; PULSE 78; RESP 18; O2SAT 94
[2023-10-14] MEDS: AMIODARONE 200 MG TABLET PO SCH (09:10)
[2023-10-14] MEDS: ISOSORBIDE MONO 30MG SR TAB PO SCH (09:11)
[2023-10-14] MEDS: INSULIN HUMULIN 70/30 100 UNIT/ML 3ML SQ SCH (09:27)
[2023-10-14] MEDS: CLONIDINE HCL 0.1 MG TABLET PO SCH (09:43)
[2023-10-14 12:06] VITALS: BP 119/59; PULSE 71; RESP 18
[2023-10-14] MEDS: LACTULOSE 20 GM/30 ML UDCUP PO PRN (13:41)
[2023-10-14] MEDS ORDERED: FAMO20TA8 PO (13:42)
[2023-10-14 14:30] VITALS: PULSE 74; PULSE 81; RESP 18; RESP 20; O2SAT 95; O2SAT 99
== END 2023-10-14 16:15 | disposition home or self-care (01) ==
LOC: EDH 14:27 → EDHIP 19:42 → 3CH 10-13 00:17
PROVIDERS: ADMIT Internal Medicine; ATTEND Internal Medicine
DX: I13.2 Hypertensive heart and chronic kidney disease with heart failure and with stage 5 chronic kidney disease, or end stage renal disease (principal); Z20.822 Contact with and (suspected) exposure to COVID-19; E11.22 Type 2 diabetes mellitus with diabetic chronic kidney disease; I50.43 Acute on chronic combined systolic (congestive) and diastolic (congestive) heart failure; N18.6 End stage renal disease; R06.00 Dyspnea, unspecified; I35.1 Nonrheumatic aortic (valve) insufficiency; D63.8 Anemia in other chronic diseases classified elsewhere; E11.65 Type 2 diabetes mellitus with hyperglycemia; E66.2 Morbid (severe) obesity with alveolar hypoventilation; E44.1 Mild protein-calorie malnutrition; E11.319 Type 2 diabetes mellitus with unspecified diabetic retinopathy without macular edema; I25.10 Atherosclerotic heart disease of native coronary artery without angina pectoris; E03.9 Hypothyroidism, unspecified; E78.5 Hyperlipidemia, unspecified; E11.51 Type 2 diabetes mellitus with diabetic peripheral angiopathy without gangrene; I25.2 Old myocardial infarction; I48.20 Chronic atrial fibrillation, unspecified; I87.8 Other specified disorders of veins; D25.9 Leiomyoma of uterus, unspecified; Z68.32 Body mass index [BMI] 32.0-32.9, adult; Z79.4 Long term (current) use of insulin; Z99.2 Dependence on renal dialysis; Z90.49 Acquired absence of other specified parts of digestive tract; Z79.01 Long term (current) use of anticoagulants; Z95.810 Presence of automatic (implantable) cardiac defibrillator
CPT/HCPCS: 36415; 71045; 74176; 80048; 80053; 82948; 83605; 83735; 83880; 84145; 84484; 85025; 86704; 86706; 87340; 87635; 87804; 87880; 90935; 93005; 94760; 96372; G0378; J1815; G0257

== ENCOUNTER 2023-11-11 20:58 | Observation (INO) | payer OTHER ==
[~2023-11-11] VITALS: Ht 152.4 cm; Wt 63.9 kg
[~2023-11-11 20:58] MED LIST changes: +FAMO20TA8 PO; -NITR100C PO
[2023-11-11 22:16] LABS: BASOPHILS # (AUTO) 0.05 K/uL (0.00-0.20); BASOPHILS % (AUTO) 0.6 % (0.0-5.0); EOSINOPHILS # (AUTO) 0.12 K/uL (0.00-0.70); EOSINOPHILS % (AUTO) 1.3 % (0.0-8.0); HEMATOCRIT 35.2 % (36-48); IMMATURE GRANULOCYTE ABSOLUTE 0.07 K/uL (0-1); LYMPHOCYTES # (AUTO) 1.2 K/uL (1.0-4.8); LYMPHOCYTES % (AUTO) 13.1 % (21.0-51.0); MEAN CORPUSCULAR HEMOGLOBIN 31.1 pg (27.0-33.0); MEAN CORPUSCULAR HGB CONC 32.1 g/dL (32.0-36.0); MONOCYTES # (AUTO) 0.9 K/uL (0.1-1.0); MONOCYTES % (AUTO) 9.6 % (3.0-13.0); NEUTROPHILS # (AUTO) 6.7 K/uL (1.8-7.7); NEUTROPHILS % (AUTO) 74.6 % (40.0-77.0); PLATELET COUNT (AUTO) 163 K/uL (130-400); RED BLOOD CELL COUNT(AUTO) 3.63 MIL/uL (4.00-5.50); RED CELL DISTRIBUTION WIDTH 15.6 % (11.0-15.5)
[2023-11-12] VITALS (23 sets, daily range): BP systolic 101–200; BP diastolic 46–101; PULSE 60–76; RESP 16–19; TEMP 98.2; O2SAT 95–97
[2023-11-12 00:31] LABS: ALBUMIN 3.1 g/dL (3.5-5.0); BILIRUBIN,TOTAL 0.7 mg/dL (0.2-1.0); CREATININE 6.1 mg/dL (0.5-1.0); POTASSIUM 4.7 mmol/L (3.5-5.1); TOTAL PROTEIN, SERUM 7.3 g/dL (6.0-8.3)
[2023-11-12] MEDS: INSULIN HUMULIN R 100 UNIT/ML 3ML SQ ONE (01:05)
[2023-11-12] MEDS ORDERED: ONDANSETRON 4MG INJ IV PRN (02:00)
[2023-11-12] MEDS ORDERED: ACETAMINOPHEN 325 MG TAB PO PRN (02:00)
[2023-11-12] MEDS ORDERED: LACTULOSE 20 GM/30 ML UDCUP PO PRN (02:00)
[2023-11-12] MEDS ORDERED: DEXTROSE 50%-WATER 50 ML DISP.SYRIN IV PRN (02:00)
[2023-11-12] MEDS ORDERED: NITROGLYCERIN 0.4 MG SL TAB SL PRN (02:00)
[2023-11-12] MEDS ORDERED: GUAIFENESIN-DM 200/20 MG 10 ML PO PRN (02:00)
[2023-11-12 02:15] LABS: HEMOGLOBIN A1C 10.2 % (4.0-6.0)
[2023-11-12] MEDS: ACETAMINOPHEN 325 MG TAB PO PRN (03:37)
[2023-11-12] MEDS: INSULIN HUMULIN R 100 UNIT/ML 3ML SQ SCH (05:26)
[2023-11-12] MEDS: FAMOTIDINE 20MG TAB PO SCH (08:29)
[2023-11-12 13:55] LABS: HEMATOCRIT 35.8 % (36-48); PLATELET COUNT (AUTO) 142 K/uL (130-400); RED BLOOD CELL COUNT(AUTO) 3.58 MIL/uL (4.00-5.50); RED CELL DISTRIBUTION WIDTH 15.3 % (11.0-15.5); WHITE BLOOD COUNT (AUTO) 8.3 K/uL (4.8-10.8)
[2023-11-12 14:07] LABS: CREATININE 6.8 mg/dL (0.5-1.0); POTASSIUM 4.7 mmol/L (3.5-5.1); THYROID STIMULATING HORMONE 1.57 uIU/mL (0.36-3.74)
[2023-11-12] MEDS ORDERED: LIDOCAINE HCL 2% JELLY 5 ML TP SCH (15:00)
[2023-11-12] MEDS: GLUCAGON 1MG KIT 1 MG ML IM PRN (18:06)
[2023-11-13 04:00] VITALS: BP 122/66; PULSE 80; RESP 18
[2023-11-13 05:34] LABS: HEMATOCRIT 36.8 % (36-48); MEAN CORPUSCULAR HEMOGLOBIN 30.9 pg (27.0-33.0); MEAN CORPUSCULAR HGB CONC 32.1 g/dL (32.0-36.0); MEAN CORPUSCULAR VOLUME 96.3 fL (79-99); RED BLOOD CELL COUNT(AUTO) 3.82 MIL/uL (4.00-5.50); RED CELL DISTRIBUTION WIDTH 15.3 % (11.0-15.5); WHITE BLOOD COUNT (AUTO) 9.6 K/uL (4.8-10.8)
[2023-11-13 05:41] LABS: CREATININE 4.9 mg/dL (0.5-1.0); POTASSIUM 4.4 mmol/L (3.5-5.1)
[2023-11-13 08:00] VITALS: BP 142/47; PULSE 82; RESP 19; O2SAT 93
[2023-11-13 12:00] VITALS: BP 154/69; PULSE 80; RESP 18
[2023-11-13] MEDS ORDERED: ISOS30TA92 PO (13:58)
[2023-11-13] MEDS ORDERED: FOLI0.8T22 PO (13:58)
[2023-11-13] MEDS ORDERED: AMIO200T68 PO (13:58)
[2023-11-13] MEDS ORDERED: PREG50CA64 PO (13:58)
[2023-11-13] MEDS ORDERED: METO5TAB2 PO (13:58)
[2023-11-13] MEDS ORDERED: CHOL500050 PO (13:58)
[2023-11-13] MEDS ORDERED: ALPR0.5T8 PO (13:58)
[2023-11-13] MEDS ORDERED: HYDR5POW MC (13:58)
[2023-11-13 16:00] VITALS: BP 145/67; PULSE 80; RESP 19
[2023-11-13 19:10] VITALS: O2SAT 97
[2023-11-13 20:00] VITALS: BP 160/61; PULSE 79; RESP 20
[2023-11-14] VITALS (7 sets, daily range): BP systolic 126–171; BP diastolic 40–76; PULSE 72–82; RESP 18–20; O2SAT 99
[2023-11-14] MEDS: CLONIDINE HCL 0.1 MG TABLET PO PRN (04:06)
[2023-11-14 06:19] LABS: HEMATOCRIT 34.8 % (36-48); MEAN CORPUSCULAR HEMOGLOBIN 31.1 pg (27.0-33.0); MEAN CORPUSCULAR HGB CONC 31.9 g/dL (32.0-36.0); MEAN CORPUSCULAR VOLUME 97.5 fL (79-99); RED BLOOD CELL COUNT(AUTO) 3.57 MIL/uL (4.00-5.50); RED CELL DISTRIBUTION WIDTH 14.8 % (11.0-15.5); WHITE BLOOD COUNT (AUTO) 9.3 K/uL (4.8-10.8)
[2023-11-14] MEDS: INSULIN HUMULIN R 100 UNIT/ML 3ML SQ SCH (06:27)
[2023-11-14 06:29] LABS: CREATININE 6.9 mg/dL (0.5-1.0); POTASSIUM 4.5 mmol/L (3.5-5.1)
== END 2023-11-14 17:28 ==
LOC: EDH 20:58 → EDHIP 11-12 01:50 → 4DH 11-12 02:18
PROVIDERS: ADMIT Internal Medicine Critical Care Medicine; ATTEND Internal Medicine Critical Care Medicine
DX: R29.6 Repeated falls (principal); I13.2 Hypertensive heart and chronic kidney disease with heart failure and with stage 5 chronic kidney disease, or end stage renal disease; E11.22 Type 2 diabetes mellitus with diabetic chronic kidney disease; N18.6 End stage renal disease; I50.9 Heart failure, unspecified; E66.01 Morbid (severe) obesity due to excess calories; R07.89 Other chest pain; E11.65 Type 2 diabetes mellitus with hyperglycemia; I48.20 Chronic atrial fibrillation, unspecified; R62.7 Adult failure to thrive; D63.8 Anemia in other chronic diseases classified elsewhere; M25.551 Pain in right hip; T82.838A Hemorrhage due to vascular prosthetic devices, implants and grafts, initial encounter; I25.10 Atherosclerotic heart disease of native coronary artery without angina pectoris; E11.42 Type 2 diabetes mellitus with diabetic polyneuropathy; E11.51 Type 2 diabetes mellitus with diabetic peripheral angiopathy without gangrene; E03.9 Hypothyroidism, unspecified; Z95.5 Presence of coronary angioplasty implant and graft; Z99.2 Dependence on renal dialysis; Z86.73 Personal history of transient ischemic attack (TIA), and cerebral infarction without residual deficits; Z95.810 Presence of automatic (implantable) cardiac defibrillator; Z79.4 Long term (current) use of insulin; Z79.01 Long term (current) use of anticoagulants; Z68.27 Body mass index [BMI] 27.0-27.9, adult; W05.0XXA Fall from non-moving wheelchair, initial encounter; Y93.89 Activity, other specified; Y92.89 Other specified places as the place of occurrence of the external cause; Y99.8 Other external cause status; Y84.1 Kidney dialysis as the cause of abnormal reaction of the patient, or of later complication, without mention of misadventure at the time of the procedure
CPT/HCPCS: 80053; 85025; 36415 ×4; 71045; 71100; 96372 ×4; 99284; 83036; 84443 ×2; 82947; 80048 ×3; 82140; 85027 ×3; 82948 ×16; 70450; 90935; 97161; 97530 ×4; 97116; G0378 ×58; J1610 ×2; J1815 ×4; G0257